=== PATIENT | female | born 1940 | race Caucasian/White ===

== ENCOUNTER 2021-11-29 08:33 | Day surgery (SDC) | payer MEDICARE ==
[2021-11-28 10:16] VITALS: BMI 34.0
[~2021-11-29 08:33] MED LIST: LACTATED RINGERS 1,000 ML IV SCH; LIDOCAINE 1% (10MG/ML) FOR IV START INTRADERMA PRN
[2021-11-29 09:05] VITALS: TEMP 96.9
[2021-11-29 09:20] LABS: Glucose,Whole Blood 124 mg/dL (70-110)
[2021-11-29] MEDS ORDERED: PROPOFOL 10 MG/ML 20 ML VIAL IV ONE (09:38)
[2021-11-29] MEDS ORDERED: LIDOCAINE 2% INJ 20 MG/ML (2 ML VIAL) ONE (09:38)
--- NOTE | 2021-11-29 10:07 | P.PCN ---
Date of Procedure: 11/29/21 Procedure(s) Performed: BRIEF HISTORY: Patient is a 81-year-old pleasant white female scheduled for an elective colonoscopy as a part of evaluation of iron deficiency anemia. PROCEDURE PERFORMED: Colonoscopy with snare polypectomy. PREOPERATIVE DIAGNOSIS: Iron deficiency anemia. IV sedation per Anesthesia. PROCEDURE: After informed consent was obtained, the patient, was brought into the endoscopy unit. IV sedation was administered by Anesthesia under continuous monitoring. Digital rectal examination was normal. Initially the Olympus CF-160 flexible video colonoscope was then inserted in the rectum, gradually advanced into the cecum without any difficulty. Careful examination was performed as the scope was gradually being withdrawn. Ileocecal valve and the appendiceal orifice were visualized and appeared normal. Prep was excellent. Mucosa of the cecum, ascending colon, transverse colon, appeared normal. The descending colon there was a 5 limited sessile polyp removed by snare polypectomy. descending colon, sigmoid colon, and rectum appeared normal. Retroflexion was performed in the rectum and no lesions were seen. The patient tolerated the procedure well. IMPRESSION: 5 mm ascending colon polyp status post polypectomy Rest of the colon appeared normal RECOMMENDATIONS: Findings of this examination were discussed with the patientas well as a family. She was advised to follow with the biopsy results. Continue with iron supplements and monitor hemoglobin periodically.
[2021-11-29 10:39] VITALS: BP 129/77; PULSE 67; RESP 18
== END 2021-11-29 11:04 | disposition home or self-care (01) ==
LOC: ORWHC2ENDO 08:33
PROVIDERS: ATTEND Internal Medicine Gastroenterology
DX: D12.4 Benign neoplasm of descending colon (principal); D50.9 Iron deficiency anemia, unspecified; I25.10 Atherosclerotic heart disease of native coronary artery without angina pectoris; I10 Essential (primary) hypertension; E78.5 Hyperlipidemia, unspecified; Z95.5 Presence of coronary angioplasty implant and graft; Z95.1 Presence of aortocoronary bypass graft; Z98.890 Other specified postprocedural states; Z79.899 Other long term (current) drug therapy; Z79.82 Long term (current) use of aspirin; Z88.5 Allergy status to narcotic agent; Z88.0 Allergy status to penicillin; Z88.8 Allergy status to other drugs, medicaments and biological substances; Z91.041 Radiographic dye allergy status
CPT/HCPCS: 88305; 45385; J2704; J2001

== ENCOUNTER 2022-10-20 08:44 | Inpatient (IN) | payer MEDICARE ==
[2022-10-19 09:56] VITALS: BMI 34.3
[2022-10-20 09:30] LABS: Glucose,Whole Blood 120 mg/dL (70-110)
[2022-10-20] MEDS ORDERED: LACTATED RINGERS 1,000 ML IV ONE (09:30)
--- NOTE | 2022-10-20 11:24 | P.PCN ---
Date of Procedure: 10/20/22 Procedure(s) Performed: BRIEF HISTORY: Patient is a 81-year-old, pleasant, white white female scheduled for an upper endoscopy as a part of evaluation of I deficiency anemia. She had a colonoscopy in November of last year and was noted to have small adenoma.. PROCEDURE PERFORMED: Esophagogastroduodenoscopy with biopsy, snare polypectomy and Endo Clip placement. PREOPERATIVE DIAGNOSIS: Iron Deficiency anemia. IV sedation per anesthesia. PROCEDURE: After informed consent was obtained, the patient was brought into the endoscopy unit. IV sedation was administered by Anesthesia under continuous monitoring. Initially the Olympus GIF-140 video endoscope was inserted into the mouth. Esophagus intubated without any difficulty. It was gradually advanced into the stomach and duodenum and carefully examined. The bulb and the second part of the duodenum appeared normal. Biopsies were done from the duodenum to rule out celiac disease. The scope at this time was withdrawn to the stomach, adequately insufflated with air, and upon careful examination, mucosa of the antrum, appeared normal. In the proximal body the stomach along the lesser curvature there was a 3 cm thick pedunculated polyp with some oozing identified. Since this appears to be the source of iron deficiency anemia I proceeded with snare polypectomy. As snare polypectomy was being performed at the base of the polyp some technical difficulties were encountered and the cautery machine was not working. In the meantime the screening on him on the monitor went blank and cautery was completed and immediately there was significant oozing identified. The cautery machine was changed an episode with snare polypectomy and the stump of the polyp. Despite performing snare it appeared to the cautery machine was not working and patient continued to have active oozing. Total of 6 endoclips were placed and good hemostasis was achieved. Using a Hendricks net the gastric polyp was retrieved. Mucosa of the cardia and the fundus appeared normal. The scope was then withdrawn into the esophagus. The GE junction was located at 39 cm from the incisors. The esophagus appeared normal. There were no erosions or ulcerations seen and the patient tolerated the procedure well. IMPRESSION: 3 cm thick pedunculated polyp in the proximal body of the stomach along the lesser curvature with some oozing status post snare polypectomy .was complicated by active bleeding from the polypectomy site status post Endo Clip placement with good hemostasis RECOMMENDATIONS: The findings of this examination were discussed with the patient as well as a family. Patient will be admitted to the hospital for close observation. Surgical consultation will be obtained with Dr. Ochoa. We'll obtain CBC and watch at every 6 hours.
[2022-10-20] MEDS ORDERED: LACTATED RINGERS 1,000 ML IV SCH (11:47)
[2022-10-20 12:51] LABS: Glucose,Whole Blood 98 mg/dL (70-110)
[2022-10-20] MEDS ORDERED: MELATONIN 3 MG TABLET PO PRN (13:11)
[2022-10-20] MEDS ORDERED: ACETAMINOPHEN TAB 325 MG TAB PO PRN (13:11)
[2022-10-20] MEDS ORDERED: NALOXONE 0.4 MG/ML 1 ML VIAL IV PRN (13:11)
[2022-10-20] MEDS ORDERED: DEXTROSE 50% SYRINGE 50 ML IVP PRN ×2 (13:18)
--- NOTE | 2022-10-20 13:27 | P.HPIM ---
History of Present Illness H&P Date: 10/20/22 History of Presenting Illness: Patient is a very pleasant 81-year-old female with a past medical history of CAD status post CABG 5 followed by stenting, hypertension, hyperlipidemia, eyk-qpvjweu-awevuwdbj diabetes mellitus, and iron deficiency anemia. She underwent an EGD with biopsy and snare polypectomy earlier today with clip placement. Snare polypectomy was complicated by active bleeding and after hemostasis achieved, self propelled dredge operator recommending inpatient admission for close monitoring of hemoglobin and/or recurrence of bleeding. During po stoperative period patient went into new onset atrial fibrillation with a controlled ventricular rate. Discussed patient's history, surgical procedure, and recommendations by surgeon with gastroenterology PRODUCTION FLOATER and self propelled dredge operator. Patient is being admitted under our services with consultation to general surgery (Dr. Ochoa) and cardiology (Dr. Durbin). Upon evaluation at the bedside in postoperative area, patient alert and oriented to person, place, time, and situation. She currently denies having any complaints at this time. Patient noted to be in atrial fibrillation with a controlled ventricular rate ranging from 60s to 90s on monitor throughout assessment. She denies feeling any palpitations, dizziness, lightheadedness, chest pain, shortness of breath, nausea, vomiting, abdominal pain or discomfort, or any other complaints at this time. Patient does report she has noticed some swelling in her bilateral hands, ankles and feet over the past few weeks. Patient reports that she was following with a line director in [place] where she underwent her quintuple bypass in 2001. Patient reports since this time she also had stents placed in 2012 and again in 2013 but otherwise denies having any history of known atrial fibrillation or other cardiac arrhythmias. Patient states she does not have a line director since moving to [place] and her line director was in [place]. Review of systems: Pertinent positives and negatives as discussed in HPI, a complete review of systems was performed and all other systems are negative. Physical exam: Vital signs reviewed and stable. General: Nontoxic, no distress and appears stated age. Derm: Skin warm and dry, normal coloration for ethnicity. Head: Atraumatic, normocephalic and symmetric. Eyes: EOMs intact, no lid lag, and anicteric sclera Mouth: no lip lesions, mucus membranes moist Cardiovascular: Irregularly irregular, systolic murmur, positive posterior tibial pulses bilaterally, and cap refill < 2 seconds. Lungs: Respirations even, regular, and unlabored on room air. Lungs CTA bilaterally, no rhonchi, no rales, no wheezing, and no accessory muscle usage. Abdominal: soft, nontender to palpation, no guarding, no appreciable organomegaly Ext: ROM intact. No gross muscle atrophy, scant lower extremity edema, no contractures Neuro: Speech clear, face symmetrical and CN II-XII grossly intact with no noted focal neuro deficits Psych: Alert and oriented to person, place, time, and situation. Appropriate and pleasant affect. Assessment and Plan of Care: New-onset A. fib with a controlled ventricular rate Status post Snare polypectomy complicated by active bleeding History of CAD status post CABG 5 followed by stent placement Hypertension Hyperlipidemia Iron deficiency anemia Fpy-Fjbjvdr-tbvvwgele diabetes mellitus -Order placed for stat EKG -Hold off on anticoagulation at this time as patient being monitored for concerns of possible bleeding, this was discussed with line director. -Cardiology consulted and discussed plan of care with Dr. Durbin. -Obtain stat CBC followed by CBC every 6 hours to monitor for any signs/symptoms of blood loss. -Order placed for echocardiogram -Patient to be admitted to cardiac stepdown unit with telemetry under our services for continued close monitoring. -Order placed for Protonix 40 mg IVP twice daily -Patient to be maintained on clear liquid diet pending lab results and diet to be advanced as recommended by general surgery. -MIA rzao and Bianca for DVT prophylaxis -Hold glyburide and place patient on glycemic protocol with NovoLog sliding scale. The patient is admitted with an anticipated greater than 2 midnight stay for evaluation of new onset atrial fibrillation and status post snare polypectomy complicated by active bleeding CODE STATUS: Full code DVT prophylaxis: MAI razo and Bianca Discussed with: Patient, RN, self propelled dredge operator, and line director Anticipated discharge date: Clinical course to determine Anticipated discharge place: Home Patient was seen independently by Nurse Practitioner. This document was prepared using [employer] dictation software. Please allow for errors in television engineering teacher while rare they do occur. Ben Mckenna NP rendered care for this patient independently, reviewed the findings and plan as documented in the note above. I did not physically speak with or examine the patient on this date. Past Medical History Past Medical History: Diabetes Mellitus, Hyperlipidemia, Hypertension, Myocardial Infarction ([place]) Additional Past Medical History / Comment(s): gout, low iron/anemia-iron transfusions, hx falls, fx ribs, back pain, constipation when taking iron. Last Myocardial Infarction Date:: 2001 History of Any Multi-Drug Resistant Organisms: None Reported Past Surgical History: Cholecystectomy, Coronary Bypass/CABG, Heart Catheterization With Stent, Hernia Repair, Orthopedic Surgery Additional Past Surgical History / Comment(s): 5 way bypass CABG 2001, umbilical hernia, renee cataracts, ORIF rt ankle, egd, colonoscopy. Past Anesthesia/Blood Transfusion Reactions: Previous Problems w/ Anesthesia, Motion Sickness, Postoperative Nausea & Vomiting (PONV) Date of Last Stent Placement:: 1998 Past Psychological History: No Psychological Hx Reported Smoking Status: Former smoker Past Alcohol Use History: None Reported Additional Past Alcohol Use History / Comment(s): quit smoking 2001, started smoking age 18's Past Drug Use History: None Reported - Past Family History Mother Family Medical History: No Reported History Son(s) Family Medical History: Cancer Additional Family Medical History / Comment(s): pancreatic cancer Father Family Medical History: Congestive Heart Failure (CHF), Coronary Artery Disease (CAD) Medications and Allergies Home Medications Medication Instructions Recorded Confirmed Type Aspirin [Adult Low Dose Aspirin EC] 81 mg PO HS 11/28/21 10/20/22 History Benazepril/Hydrochlorothiazide 1 each PO QAM 11/28/21 10/20/22 History [Benazepril-Hctz 20-25 mg Tab] Metoprolol Succinate (ER) [Toprol 100 mg PO DAILY 11/28/21 10/20/22 History Xl] allopurinoL [Zyloprim] 100 mg PO DAILY 11/28/21 10/20/22 History amLODIPine [Norvasc] 5 mg PO DAILY 11/28/21 10/20/22 History Cholecalciferol [Vitamin D3 (125 125 mcg PO DAILY 10/19/22 10/20/22 History Mcg = 5000 Iu)] Glimepiride [Amaryl] 2 mg PO AC-BRKFST 10/19/22 10/20/22 History Allergies Allergy/AdvReac Type Severity Reaction Status Date / Time codeine Allergy Severe Swelling, Verified 10/20/22 09:12 "face got distorted", diff breathing saccharin Allergy Unknown Nausea & Verified 10/20/22 09:12 Vomiting Iodine and Iodide Containing Allergy Rash/Hives Verified 10/20/22 09:12 Produc Penicillins Allergy Unknown Verified 10/20/22 09:12 perfume Allergy Rash/Hives Verified 10/20/22 09:12 red dye Allergy Rash/Hives- Verified 10/20/22 09:12 RED DYE # 10 rubber, unspecified Allergy Rapid Verified 10/20/22 09:12 Heart Rate shellfish derived [Shellfish] Allergy Rash/Hives Verified 10/20/22 09:12 shrimp Allergy Rash/Hives Verified 10/20/22 09:12 Lllwowo-VQC-SfX Reductase Allergy Rash/Hives, Verified 10/20/22 09:12 Inhibitor "can not walk" Bandaids AdvReac Unknown Rash/Hives Uncoded 10/20/22 09:12 LEATHER AdvReac Unknown Rash/Hives Uncoded 10/20/22 09:12 artificial sugar AdvReac Nausea & Uncoded 10/20/22 09:12 Vomiting Physical Exam Vitals: Vital Signs Temp Pulse Resp BP Pulse Ox 10/20/22 13:21 71 20 162/83 96 10/20/22 12:25 77 20 161/88 97 10/20/22 12:10 80 16 153/74 98 10/20/22 11:54 78 20 149/103 96 10/20/22 11:39 71 16 142/56 96 10/20/22 11:24 67 16 113/64 3 L 10/20/22 09:30 98.4 F 101 H 17 145/85 92 L Intake and Output 10/19/22 10/20/22 10/20/22 22:59 06:59 14:59 Intake Total 900 Balance 900 Intake: IV 900 Other: Weight 81.4 kg Results CBC & Chem 7: 10/21/22 10:02 10/21/22 09:52 Labs: Abnormal Lab Results - Last 24 Hours (Table) 10/20/22 Range/Units 09:28 POC Glucose (mg/dL) 120 H (70-110) mg/dL
[2022-10-20] MEDS: SODIUM CHLORIDE 0.9% 1,000 ML IV SCH (13:58)
[2022-10-20 15:40] LABS: HGB 14.3 gm/dL (11.4-16.0); Hypochromasia Slight; MCH 29.2 pg (25.0-35.0); MCHC 31.8 g/dL (31.0-37.0); MCV 91.8 fL (80.0-100.0); Mean Platelet Volume 8.1; Platelet Count 178 k/uL (150-450); RDW 13.3 % (11.5-15.5); WBC 7.1 k/uL (3.8-10.6)
[2022-10-20 16:00] LABS: African American GFR (CKD) 77 (>60 ml/min/1.73 sqM); Anion Gap 8 mmol/L; Blood Urea Nitrogen 31 mg/dL (7-17); Calcium 10.6 mg/dL (8.4-10.2); Carbon Dioxide 27 mmol/L (22-30); Chloride 103 mmol/L (98-107); Glucose 111 mg/dL (74-99); Non-African American GFR(CKD) 66 (>60 ml/min/1.73 sqM); Potassium 4.2 mmol/L (3.5-5.1); Sodium 138 mmol/L (137-145)
[2022-10-20 16:25] LABS: Glucose,Whole Blood 105 mg/dL (70-110)
[2022-10-20] MEDS: INSULIN ASPART (NovoLOG) 100 UNIT/ML VIAL SQ SCH ×2 (16:32→20:08)
--- NOTE | 2022-10-20 18:51 | P.GSCN ---
History of Present Illness Consult date: 10/20/22 Reason for Consult: Upper GI bleed History of present illness: 81-year-old female admitted after upper endoscopy revealed a moderate sized tano bobo polyp in the proximal stomach along the lesser curvature. This had a thick stalk but was removed using snare with cautery technique. The base of the polyp bled following polypectomy requiring multiple clips to be placed. Following that the patient had no further bleeding seen. She is here for observation. We are consulted in the event that bleeding resumes. I was present during the latter part of the procedure with Dr. Tony. No abdominal pain. Hemoglobin at this time is normal. No tachycardia or hypotension. Patient is on clear liquids. Review of Systems The patient denies any acute changes in vision or hearing, no dysphagia or odynophagia, no chest pain or shortness of breath, no dysuria or hematuria, no headache, no runny nose, no rectal bleeding or melena, no unexplained weight loss Past Medical History Past Medical History: Diabetes Mellitus, Hyperlipidemia, Hypertension, [place] Infarction ([place]) Additional Past Medical History / Comment(s): gout, low iron/anemia-iron tra nsfusions, hx falls, fx ribs, back pain, constipation when taking iron. Last Myocardial Infarction Date:: 2001 History of Any Multi-Drug Resistant Organisms: None Reported Past Surgical History: Cholecystectomy, Coronary Bypass/CABG, Heart Catheterization With Stent, Hernia Repair, Orthopedic Surgery Additional Past Surgical History / Comment(s): 5 way bypass CABG 2001, umbilical hernia, renee cataracts, ORIF rt ankle, egd, colonoscopy. Past Anesthesia/Blood Transfusion Reactions: Previous Problems w/ Anesthesia, Motion Sickness, Postoperative Nausea & Vomiting (PONV) Date of Last Stent Placement:: 1998 Past Psychological History: No Psychological Hx Reported Smoking Status: Former smoker Past Alcohol Use History: None Reported Additional Past Alcohol Use History / Comment(s): quit smoking 2001, started smoking age 18's Past Drug Use History: None Reported - Past Family History Mother Family Medical History: No Reported History Son(s) Family Medical History: Cancer Additional Family Medical History / Comment(s): pancreatic cancer Father Family Medical History: Congestive Heart Failure (CHF), Coronary Artery Disease (CAD) Medications and Allergies Home Medications Medication Instructions Recorded Confirmed Type Aspirin [Adult Low Dose Aspirin EC] 81 mg PO HS 11/28/21 10/20/22 History Benazepril/Hydrochlorothiazide 1 each PO QAM 11/28/21 10/20/22 History [Benazepril-Hctz 20-25 mg Tab] Metoprolol Succinate (ER) [Toprol 100 mg PO DAILY 11/28/21 10/20/22 History Xl] allopurinoL [Zyloprim] 100 mg PO DAILY 11/28/21 10/20/22 History amLODIPine [Norvasc] 5 mg PO DAILY 11/28/21 10/20/22 History Cholecalciferol [Vitamin D3 (125 125 mcg PO DAILY 10/19/22 10/20/22 History Mcg = 5000 Iu)] Glimepiride [Amaryl] 2 mg PO AC-BRKFST 10/19/22 10/20/22 History Allergies Allergy/AdvReac Type Severity Reaction Status Date / Time codeine Allergy Severe Swelling, Verified 10/20/22 09:12 "face got distorted", diff breathing saccharin Allergy Unknown Nausea & Verified 10/20/22 09:12 Vomiting Iodine and Iodide Containing Allergy Rash/Hives Verified 10/20/22 09:12 Produc Penicillins Allergy Unknown Verified 10/20/22 09:12 perfume Allergy Rash/Hives Verified 10/20/22 09:12 red dye Allergy Rash/Hives- Verified 10/20/22 09:12 RED DYE # 10 rubber, unspecified Allergy Rapid Verified 10/20/22 09:12 Heart Rate shellfish derived [Shellfish] Allergy Rash/Hives Verified 10/20/22 09:12 shrimp Allergy Rash/Hives Verified 10/20/22 09:12 Plhbxje-EFP-SdD Reductase Allergy Rash/Hives, Verified 10/20/22 09:12 Inhibitor "can not walk" Bandaids AdvReac Unknown Rash/Hives Uncoded 10/20/22 09:12 LEATHER AdvReac Unknown Rash/Hives Uncoded 10/20/22 09:12 artificial sugar AdvReac Nausea & Uncoded 10/20/22 09:12 Vomiting Surgical - Exam Vital Signs Temp Pulse Resp BP Pulse Ox 98.4 F 101 H 17 145/85 92 L 10/20/22 09:30 10/20/22 09:30 10/20/22 09:30 10/20/22 09:30 10/20/22 09:30 Physical exam: General: Well-developed, well-nourished HEENT: Normocephalic, sclerae nonicteric Abdomen: Nontender, nondistended Extremities: No edema Neuro: Alert and oriented Results - Labs 10/20/22 14:57 10/20/22 14:57 Abnormal Lab Results - Last 24 Hours (Table) 10/20/22 10/20/22 Range/Units 09:28 14:57 BUN 31 H (7-17) mg/dL Glucose 111 H (74-99) mg/dL POC Glucose (mg/dL) 120 H (70-110) mg/dL Calcium 10.6 H (8.4-10.2) mg/dL Diabetes panel 10/20/22 Range/Units 14:57 Sodium 138 (137-145) mmol/L Potassium 4.2 (3.5-5.1) mmol/L Chloride 103 (98-107) mmol/L Carbon Dioxide 27 (22-30) mmol/L BUN 31 H (7-17) mg/dL Creatinine 0.82 (0.52-1.04) mg/dL Glucose 111 H (74-99) mg/dL Calcium 10.6 H (8.4-10.2) mg/dL Calcium panel 10/20/22 Range/Units 14:57 Calcium 10.6 H (8.4-10.2) mg/dL Pituitary panel 10/20/22 Range/Units 14:57 Sodium 138 (137-145) mmol/L Potassium 4.2 (3.5-5.1) mmol/L Chloride 103 (98-107) mmol/L Carbon Dioxide 27 (22-30) mmol/L BUN 31 H (7-17) mg/dL Creatinine 0.82 (0.52-1.04) mg/dL Glucose 111 H (74-99) mg/dL Calcium 10.6 H (8.4-10.2) mg/dL Adrenal panel 10/20/22 Range/Units 14:57 Sodium 138 (137-145) mmol/L Potassium 4.2 (3.5-5.1) mmol/L Chloride 103 (98-107) mmol/L Carbon Dioxide 27 (22-30) mmol/L BUN 31 H (7-17) mg/dL Creatinine 0.82 (0.52-1.04) mg/dL Glucose 111 H (74-99) mg/dL Calcium 10.6 H (8.4-10.2) mg/dL Assessment and Plan (1) Upper GI bleed Narrative/Plan: 81-year-old female with upper GI bleed after removal of gastric polyp. Continue to monitor hemoglobin closely. Continue to hold anticoagulation. Continue liquid diet. Will follow. Current Visit: Yes Status: Acute Code(s): K92.2 - GASTROINTESTINAL HEMORRHAGE, UNSPECIFIED SNOMED Code(s): 99478700 (2) Gastric polyp Current Visit: Yes Status: Acute Code(s): K31.7 - POLYP OF STOMACH AND DUODENUM SNOMED Code(s): 52308689
[2022-10-20] MEDS: PANTOPRAZOLE 40 MG/10 ML VIAL IVP SCH (19:43)
[2022-10-20 20:04] LABS: HCT 44.9 % (34.0-46.0); HGB 14.2 gm/dL (11.4-16.0); Hypochromasia Slight; MCH 29.5 pg (25.0-35.0); MCHC 31.7 g/dL (31.0-37.0); Mean Platelet Volume 7.9; Platelet Count 179 k/uL (150-450); RBC 4.83 m/uL (3.80-5.40); RDW 13.3 % (11.5-15.5); WBC 7.6 k/uL (3.8-10.6)
[2022-10-20 20:06] LABS: Glucose,Whole Blood 104 mg/dL (70-110)
--- NOTE | 2022-10-20 22:12 | CONS ---
CONSULTATION HISTORY OF PRESENT ILLNESS: The patient is an 81-year-old pleasant white female with history of iron deficiency anemia, history of coronary artery disease, hypertension, hyperlipidemia, had an outpatient upper endoscopy as a part of evaluation of iron deficiency anemia. She had a colonoscopy in November of 2021, which revealed a small adenoma. She was scheduled for an outpatient EGD today. The upper endoscopy revealed a 3 cm polyp in the gastric body of the stomach which was removed using a snare polypectomy and immediately following the polypectomy, there was active bleeding at the polypectomy site. Subsequently, several Endoclips were placed and hemostasis was achieved and because of concern for further bleeding, she is going to be admitted to the hospital for close observation. The patient denies any abdominal pain. No nausea, no vomiting. PAST MEDICAL HISTORY: Significant for hypertension, hyperlipidemia, coronary artery disease status post CABG and diabetes mellitus. MEDICATIONS: Medications at home include, 1. Aspirin. 2. Benazepril. 3. Zyloprim. 4. Norvasc. 5. Amaryl. 6. Vitamin D3. 7. Metoprolol. ALLERGIES: None. SOCIAL HISTORY: No smoking. No alcohol use. PAST SURGICAL HISTORY: CABG, cholecystectomy, hernia repair, hip surgery. FAMILY HISTORY: Unremarkable. REVIEW OF SYSTEMS: CARDIOPULMONARY: No chest pain or shortness of breath. GENITOURINARY: No dysuria or hematuria. MUSCULOSKELETAL: Unremarkable. SKIN: Unremarkable. ENDOCRINE: Unremarkable. PSYCHIATRIC: Unremarkable. NEUROLOGIC: Unremarkable. ENT/VISION: Unremarkable. CONSTITUTIONAL: No recent weight loss. No fever, chills, or night sweats. PHYSICAL EXAMINATION: VITAL SIGNS: Stable. Blood pressure is 117/60, pulse rate 70, temperature 98. HEENT: Unremarkable. Conjunctivae pink. Sclerae anicteric. Oral cavity, no lesions. NECK: No JVD or lymph node enlargement. CHEST: Clear to auscultation. HEART: Regular rate and rhythm. ABDOMEN: Soft. Bowel sounds are positive. No organomegaly. EXTREMITIES: No pedal edema. SKIN: No rashes. NEUROLOGIC: She is alert and oriented x3. No focal deficits. LABORATORY DATA: Labs at the time of admission to the hospital, hemoglobin is 14.3, BUN 31, creatinine 0.83. IMPRESSION: 1. Acute upper gastrointestinal bleed following endoscopy with polypectomy of the large gastric polyp noted in the proximal body of the stomach, status post esophagogastroduodenoscopy with Endoclip placement with good hemostasis. 2. History of coronary artery disease, hypertension and hyperlipidemia. 3. History of diabetes mellitus. RECOMMENDATIONS: 1. Start Protonix 40 mg twice daily. 2. Clear liquid diet. 3. Surgical consultation. 4. No GI Service available for the weekend. Thank you for this consultation. MMODL / IJN: [id number] /
[2022-10-21 02:23] LABS: HCT 42.2 % (34.0-46.0); HGB 13.2 gm/dL (11.4-16.0); Hypochromasia Slight; MCHC 31.2 g/dL (31.0-37.0); Mean Platelet Volume 7.9; Platelet Count 165 k/uL (150-450); RBC 4.54 m/uL (3.80-5.40); RDW 13.5 % (11.5-15.5); WBC 7.2 k/uL (3.8-10.6)
[2022-10-21 06:12] LABS: Glucose,Whole Blood 96 mg/dL (70-110)
[2022-10-21] MEDS: INSULIN ASPART (NovoLOG) 100 UNIT/ML VIAL SQ SCH ×4 (06:15→21:27)
[2022-10-21] MEDS: lisinopriL 20 MG TAB PO SCH (09:05)
[2022-10-21] MEDS: amLODIPine 5 MG TAB PO SCH (09:05)
[2022-10-21] MEDS: allopurinoL 100 MG TAB PO SCH (09:05)
[2022-10-21] MEDS: hydroCHLOROthiazide 25 MG TAB PO SCH (09:05)
[2022-10-21] MEDS: METOPROLOL SUCCINATE (ER) 100 MG TAB.ER.24H PO SCH (09:06)
[2022-10-21] MEDS: PANTOPRAZOLE 40 MG/10 ML VIAL IVP SCH ×2 (09:06→21:30)
--- NOTE | 2022-10-21 10:00 | P.PN ---
Subjective Progress Note Date: 10/21/22 Principal diagnosis: Upper GI bleed Patient doing well today. No rectal bleeding or melena overnight. No hematemesis. Some mild nausea this morning. Otherwise she is hungry. She would like to go home today. No pain. Objective - Vital Signs Vital signs: Vital Signs Temp 98 F 10/21/22 08:00 Pulse 77 10/21/22 08:00 Resp 18 10/21/22 08:00 BP 162/86 10/21/22 08:00 Pulse Ox 93 L 10/21/22 08:00 FiO2 Intake & Output 10/20/22 10/21/22 10/21/22 18:59 06:59 18:59 Intake Total 1150 Balance 1150 Weight 81.4 kg Intake: IV 925 Oral 225 Other: Voiding Method Toilet Toilet Toilet - Exam Abdomen: Soft, nontender, nondistended - Labs CBC & Chem 7: 10/21/22 01:50 10/20/22 14:57 Labs: Abnormal Lab Results - Last 24 Hours (Table) 10/20/22 Range/Units 14:57 BUN 31 H (7-17) mg/dL Glucose 111 H (74-99) mg/dL Calcium 10.6 H (8.4-10.2) mg/dL Assessment and Plan (1) Upper GI bleed Narrative/Plan: Patient doing well at this time. Advance to pured diet. Await morning hemoglobin. If stable May discharge from our point of view. Recommend pured diet for the next 1 week. Follow-up to the hospital with any bloody stools or melanotic stools. Current Visit: Yes Status: Acute Code(s): K92.2 - GASTROINTESTINAL HEMORRHAGE, UNSPECIFIED SNOMED Code(s): 71425038 (2) Gastric polyp Current Visit: Yes Status: Acute Code(s): K31.7 - POLYP OF STOMACH AND DUODE NUM SNOMED Code(s): 20302919
[2022-10-21 10:24] LABS: ALT 20 U/L (4-34); AST 34 U/L (14-36); African American GFR (CKD) 74 (>60 ml/min/1.73 sqM); Alkaline Phosphatase 96 U/L (38-126); Anion Gap 10 mmol/L; Blood Urea Nitrogen 22 mg/dL (7-17); Calcium 10.4 mg/dL (8.4-10.2); Carbon Dioxide 26 mmol/L (22-30); Chloride 103 mmol/L (98-107); Glucose 173 mg/dL (74-99); Magnesium 1.5 mg/dL (1.6-2.3); Non-African American GFR(CKD) 64 (>60 ml/min/1.73 sqM); Potassium 3.9 mmol/L (3.5-5.1); Sodium 139 mmol/L (137-145); Total Bilirubin 1.4 mg/dL (0.2-1.3); Total Protein 7.7 g/dL (6.3-8.2)
[2022-10-21] MEDS ORDERED: Magnesium Replacement Protocol 1 EACH MISC MISCELLANE PRN (10:26)
[2022-10-21 10:45] LABS: HCT 46.6 % (34.0-46.0); HGB 14.4 gm/dL (11.4-16.0); Hypochromasia Slight; MCH 28.9 pg (25.0-35.0); MCV 93.2 fL (80.0-100.0); Mean Platelet Volume 8.1; Platelet Count 179 k/uL (150-450); RDW 13.3 % (11.5-15.5); WBC 7.2 k/uL (3.8-10.6)
[2022-10-21] MEDS: SODIUM CHLORIDE 0.9% 1,000 ML IV SCH (11:02)
[2022-10-21] MEDS: MAGNESIUM SULFATE-D5W PMX 1 GM in DEXTROSE/WATER 1 100ML.BAG IVPB SCH ×2 (11:02→12:36)
[2022-10-21 11:30] LABS: Glucose,Whole Blood 130 mg/dL (70-110)
--- NOTE | 2022-10-21 14:36 | P.PN ---
Subjective Progress Note Date: 10/21/22 History of Presenting Illness: Patient is a very pleasant 81-year-old female with a past medical history of CAD status post CABG 5 followed by stenting, hypertension, hyperlipidemia, rsn-cfelwpy-rjapnqhyn diabetes mellitus, and iron deficiency anemia. She under went an EGD with biopsy and snare polypectomy earlier today with clip placement. Snare polypectomy was complicated by active bleeding and after hemostasis achieved, passenger solicitor recommending inpatient admission for close monitoring of hemoglobin and/or recurrence of bleeding. During postoperative period patient went into new onset atrial fibrillation with a controlled ventricular rate. Discussed patient's history, surgical procedure, and recommendations by surgeon with gastroenterology INSTRUCTIONAL SUPPORT TECHNICIAN and passenger solicitor. Patient is being admitted under our services with consultation to general surgery (Dr. Ochoa) and cardiology (Dr. Durbin). EKG reviewed showing atrial fibrillation with a controlled ventricular rate at 75 bpm with inferiolateral T- wave inversion upon personal review and interpretation. Hemoglobin has been trended every 6 hours and has remained stable resulting at 14.3, 14.2, 13.2, and 14.4. CBC remains unremarkable and BMP showing elevated BUN of 22, glucose of 173, magnesium of 1.5, and elevated bili of 1.4. Physical exam: Patient seen and fully evaluated at bedside this morning. She was sitting up in the chair and denies having any complaints or pain at this time. Patient remains in atrial fibrillation currently with a controlled ventricular rate. Hemoglobin has been trended every 6 hours and remains stable at 14.4. Patient reports having a bowel movement this morning and denies noting any melena or hematochezia. Diet was advanced to pured diet per general surgery recommendations and patient appears to be tolerating well. Vital signs reviewed and stable. General: Nontoxic, no distress and appears stated age. Derm: Skin warm and dry, normal coloration for ethnicity. Head: Atraumatic, normocephalic and symmetric. Eyes: EOMs intact, no lid lag, and anicteric sclera Mouth: no lip lesions, mucus membranes moist Cardiovascular: Irregularly irregular, systolic murmur, positive posterior tibial pulses bilaterally, and cap refill < 2 seconds. Lungs: Respirations even, regular, and unlabored on room air. Lungs CTA bilaterally, no rhonchi, no rales, no wheezing, and no accessory muscle usage. Abdominal: soft, nontender to palpation, no guarding, no appreciable organomegaly Ext: ROM intact. No gross muscle atrophy, scant lower extremity edema, no contractures Neuro: Speech clear, face symmetrical and CN II-XII grossly intact with no noted focal neuro deficits Psych: Alert and oriented to person, place, time, and situation. Appropriate and pleasant affect. Assessment and Plan of Care: New-onset A. fib with a controlled ventricular rate Status post Snare polypectomy complicated by active bleeding Prerenal azotemia Elevated total bili of 1.4 Hypomagnesemia History of CAD status post CABG 5 followed by stent placement Hypertension Hyperlipidemia Iron deficiency anemia Iba-Haxtiin-zlrlhhnqx diabetes mellitus -EKG reviewed showing atrial fibrillation with a controlled ventricular rate at 75 bpm with inferiolateral T-wave inversion upon personal review and interpretation. -Gen. surgery and discussed plan of care with Dr. Ochoa. He is recommending patient cleared from his perspective for discharge on pured diet and recommending continuing to hold off on anticoagulation secondary to high risk of bleeds at this time. -Cardiology consulted and appreciate recommendations -CBC trended every 6 hours throughout the night, hemoglobin remained stable at 14.4. -Echocardiogram has been completed awaiting results. -Continue telemetry monitoring. -Continue Protonix 40 mg IVP twice daily -Magnesium 1.5. Orders place her magnesium sulfate 2 g IVPB with repeat magnesium levels tomorrow morning. -Diet was advanced to Pured diet by general surgeon this morning and patient tolerating well. -Continue MIA hose and SCDs for DVT prophylaxis -Hold glyburide and continue glycemic protocol with NovoLog sliding scale. Data review: Vital signs reviewed and stable. Blood pressure 162/86, heart rate 77, respiratory rate 18, temperature 98.0F, SpO2 of 93% on room air. Hemoglobin has been trended every 6 hours and has remained stable resulting at 14.3, 14.2, 13.2, and 14.4. CBC remains unremarkable and BMP showing elevated BUN of 22, glucose of 173, magnesium of 1.5, and elevated bili of 1.4. CODE STATUS: Full code DVT prophylaxis: MIA hose and SCDs Discussed with: Patient, RN, and general surgeon Anticipated discharge date: Clinical course to determine Anticipated discharge place: Home Patient was seen independently by Nurse Practitioner. This document was prepared using [employer] dictation software. Please allow for errors in taproom attendant while rare they do occur. Ben Bala, INSTRUCTIONAL SUPPORT TECHNICIAN rendered care for this patient independently, reviewed the findings and plan as documented in the note above. I did not physically speak with or examine the patient on this date. Objective - Vital Signs Vital signs: Vital Signs Temp 98.5 F 10/21/22 03:16 Pulse 71 10/21/22 03:16 Resp 18 10/21/22 03:16 BP 135/77 10/21/22 03:16 Pulse Ox 93 L 10/21/22 03:16 FiO2 Intake & Output 10/20/22 10/21/22 10/21/22 18:59 06:59 18:59 Intake Total 1150 Balance 1150 Weight 81.4 kg Intake: IV 925 Oral 225 Other: Voiding Method Toilet Toilet - Labs CBC & Chem 7: 10/21/22 10:02 10/21/22 09:52 Labs: Abnormal Lab Results - Last 24 Hours (Table) 10/20/22 Range/Units 14:57 BUN 31 H (7-17) mg/dL Glucose 111 H (74-99) mg/dL Calcium 10.6 H (8.4-10.2) mg/dL
--- NOTE | 2022-10-21 14:59 | P.CRDCN ---
History of Present Illness Consult date: 10/21/22 History of present illness: HISTORY OF PRESENTING ILLNESS 81-year-old with prior history of coronary artery disease status post CABG in 2001, previous PCI before 2001, hypertension, hyperlipidemia, type 2 diabetes, had issues with anemia and lower GI bleeding. She had a EGD with biopsy and snare polypectomy done and clip placement. Postoperatively she was noticed to have atrial fibrillation with controlled ventricular rate. Patient reports that she has never had prior history of atrial fibrillation. She is not on any blood thinners at this time. She denies any symptoms of palpitations lightheadedness or dizziness after her endoscopy procedure. She denies any chest pain chest pressure. She denies any disruption of excess tolerance lately. Her EKG shows atrial fibrillation with controlled ventricular response with nonspecific ST changes Hemoglobin is 14.4 Kidney function is stable with creatinine less than 1 REVIEW OF SYSTEMS 14 point review of system is negative except what is mentioned above in HPI. PHYSICAL EXAMINATION Vital signs reviewed. Head: Normocephalic. Eyes: Sclerae nonicteric. Neck: Brisk carotid upstroke, no jugular venous distention. Lungs: Clear to auscultation. Heart: Irregularly irregular S1-S2, no S3, no murmur or rub. Abdomen: Soft nontender, positive bowel sounds no organomegaly. Extremities: No edema, intact distal pulses. ASSESSMENT Newly Diagnosis atrial fibrillation with controlled ventricular response. Elevated [id number] score Prior history of CAD status post CABG in 2001 Snare polypectomy complicated by bleeding. Hemoglobin has been stable Hypertension Hyperlipidemia Reported ALLERGY to statins Type II diabetes PLAN Start Eliquis 5 mg twice a day. We had a detailed discussion about her risk of stroke and high bleeding risk. Patient is agreeable to try her self on systemic anticoagulation. He will follow-up with me in 2-3 weeks Reviewed her echocardiogram and it doesn't show any any significant mitral stenosis We will opt for rate control strategy with metoprolol continue her amlodipine and lisinopril without changes Okay to be discharged from Cardiac standpoint Past Medical History Past Medical History: Diabetes Mellitus, Hyperlipidemia, Hypertension, Myocardial Infarction (DC) Additional Past Medical History / Comment(s): gout, low iron/anemia-iron transfusions, hx falls, fx ribs, back pain, constipation when taking iron. Last Myocardial Infarction Date:: 2001 History of Any Multi-Drug Resistant Organisms: None Reported Past Surgical History: Cholecystectomy, Coronary Bypass/CABG, Heart Catheterization With Stent, Hernia Repair, Orthopedic Surgery Additional Past Surgical History / Comment(s): 5 way bypass CABG 2001, umbilical hernia, renee cataracts, ORIF rt ankle, egd, colonoscopy. Past Anesthesia/Blood Transfusion Reactions: Previous Problems w/ Anesthesia, Motion Sickness, Postoperative Nausea & Vomiting (PONV) Date of Last Stent Placement:: 1998 Past Psychological History: No Psychological Hx Reported Smoking Status: Former smoker Past Alcohol Use History: None Reported Additional Past Alcohol Use History / Comment(s): quit smoking 2001, started smoking age 18's Past Drug Use History: None Reported - Past Family History Mother Family Medical History: No Reported History Son(s) Family Medical History: Cancer Additional Family Medical History / Comment(s): pancreatic cancer Father Family Medical History: Congestive Heart Failure (CHF), Coronary Artery Disease (CAD) Medications and Allergies Home Medications Medication Instructions Recorded Confirmed Type Aspirin [Adult Low Dose Aspirin EC] 81 mg PO HS 11/28/21 10/20/22 History Benazepril/Hydrochlorothiazide 1 each PO QAM 11/28/21 10/20/22 History [Benazepril-Hctz 20-25 mg Tab] Metoprolol Succinate (ER) [Toprol 100 mg PO DAILY 11/28/21 10/20/22 History Xl] allopurinoL [Zyloprim] 100 mg PO DAILY 11/28/21 10/20/22 History amLODIPine [Norvasc] 5 mg PO DAILY 11/28/21 10/20/22 History Cholecalciferol [Vitamin D3 (125 125 mcg PO DAILY 10/19/22 10/20/22 History Mcg = 5000 Iu)] Glimepiride [Amaryl] 2 mg PO [id number] 10/19/22 10/20/22 History Allergies Allergy/AdvReac Type Severity Reaction Status Date / Time codeine Allergy Severe Swelling, Verified 10/20/22 09:12 "face got distorted", diff breathing saccharin Allergy Unknown Nausea & Verified 10/20/22 09:12 Vomiting Iodine and Iodide Containing Allergy Rash/Hives Verified 10/20/22 09:12 Produc Penicillins Allergy Unknown Verified 10/20/22 09:12 perfume Allergy Rash/Hives Verified 10/20/22 09:12 red dye Allergy Rash/Hives- Verified 10/20/22 09:12 RED DYE # 10 rubber, unspecified Allergy Rapid Verified 10/20/22 09:12 Heart Rate shellfish derived [Shellfish] Allergy Rash/Hives Verified 10/20/22 09:12 shrimp Allergy Rash/Hives Verified 10/20/22 09:12 [id number] Reductase Allergy Rash/Hives, Verified 10/20/22 09:12 Inhibitor "can not walk" Bandaids AdvReac Unknown Rash/Hives Uncoded 10/20/22 09:12 LEATHER AdvReac Unknown Rash/Hives Uncoded 10/20/22 09:12 artificial sugar AdvReac Nausea & Uncoded 10/20/22 09:12 Vomiting Physical Exam Vitals: Vital Signs Temp Pulse Resp BP Pulse Ox 10/21/22 11:39 98.2 F 67 16 140/67 92 L 10/21/22 08:00 98 F 77 18 162/86 93 L 10/21/22 03:16 98.5 F 71 18 135/77 93 L 10/20/22 23:22 98.1 F 71 18 148/84 93 L 10/20/22 19:35 98.3 F 67 16 163/72 94 L 10/20/22 16:00 98.0 F 70 18 117/60 97 Intake and Output 10/20/22 10/21/22 10/21/22 22:59 06:59 14:59 Intake Total 225 480 Balance 225 480 Intake: Oral 225 480 Other: Voiding Method Toilet Toilet Toilet # Voids 1 # Bowel Movements 1 Results 10/21/22 10:02 10/21/22 09:52 Cardiac Enzymes 10/21/22 Range/Units 09:52 AST 34 (14-36) U/L CBC 10/20/22 10/20/22 10/21/22 Range/Units 14:57 19:39 01:50 WBC 7.1 7.6 7.2 (3.8-10.6) k/uL RBC 4.90 4.83 4.54 (3.80-5.40) m/uL Hgb 14.3 14.2 13.2 (11.4-16.0) gm/dL Hct 45.0 44.9 42.2 (34.0-46.0) % Plt Count 178 179 165 (150-450) k/uL 10/21/22 Range/Units 10:02 WBC 7.2 (3.8-10.6) k/uL RBC 5.00 (3.80-5.40) m/uL Hgb 14.4 (11.4-16.0) gm/dL Hct 46.6 H (34.0-46.0) % Plt Count 179 (150-450) k/uL Comprehensive Metabolic Panel 10/20/22 10/21/22 Range/Units 14:57 09:52 Sodium 138 139 (137-145) mmol/L Potassium 4.2 3.9 (3.5-5.1) mmol/L Chloride 103 103 (98-107) mmol/L Carbon Dioxide 27 26 (22-30) mmol/L BUN 31 H 22 H (7-17) mg/dL Creatinine 0.82 0.84 (0.52-1.04) mg/dL Glucose 111 H 173 H (74-99) mg/dL Calcium 10.6 H 10.4 H (8.4-10.2) mg/dL AST 34 (14-36) U/L ALT 20 (4-34) U/L Alkaline Phosphatase 96 (38-126) U/L Total Protein 7.7 (6.3-8.2) g/dL Albumin 4.0 (3.5-5.0) g/dL Current Medications Generic Name Dose Route Start Last Admin Trade Name Freq PRN Reason Stop Dose Admin Acetaminophen 650 mg 10/20/22 13:11 Acetaminophen Tab 325 Mg Tab PO 11/19/22 13:12 Q6HR PRN Mild Pain or Fever > 100.5 Allopurinol 100 mg 10/21/22 09:00 10/21/22 09:05 Allopurinol 100 Mg Tab PO 11/20/22 09:01 100 mg DAILY JUAN DANIEL Administration Amlodipine Besylate 5 mg 10/21/22 09:00 10/21/22 09:05 Amlodipine 5 Mg Tab PO 11/20/22 09:01 5 mg DAILY JUAN DANIEL Administration Apixaban 5 mg 10/21/22 21:00 Apixaban 5 Mg Tab PO BID JUAN DANIEL Protocol Dextrose/Water 25 ml 10/20/22 13:18 Dextrose 50% Syringe 50 Ml IVP 11/19/22 13:19 PER PROTOCOL PRN Hypoglycemia Protocol Dextrose/Water 50 ml 10/20/22 13:18 Dextrose 50% Syringe 50 Ml IVP 11/19/22 13:19 PER PROTOCOL PRN Hypoglycemia Protocol Hydrochlorothiazide 25 mg 10/21/22 09:00 10/21/22 09:05 Hydrochlorothiazide 25 Mg Tab PO 11/20/22 09:01 25 mg QAM JUAN DANIEL Administration Sodium Chloride 1,000 mls @ 20 mls/hr 10/20/22 13:15 10/21/22 11:02 Saline 0.9% IV 11/19/22 13:16 20 mls/hr .Q24H JUAN DANIEL Administration Insulin Aspart 0 unit 10/20/22 17:30 10/21/22 11:31 Insulin Aspart (Novolog) 100 Unit/Ml Vial SQ 11/19/22 17:31 Not Given ACHS JUAN DANIEL Protocol Lisinopril 20 mg 10/21/22 09:00 10/21/22 09:05 Lisinopril 20 Mg Tab PO 11/20/22 09:01 20 mg QAM JUAN DANIEL Administration Melatonin 3 mg 10/20/22 13:11 Melatonin 3 Mg Tablet PO 11/19/22 13:12 HS PRN Insomnia Metoprolol Succinate 100 mg 10/21/22 09:00 10/21/22 09:06 Metoprolol Succinate (Er) 100 Mg Tab.Er.24h PO 11/20/22 09:01 100 mg DAILY JUAN DANIEL Administration Miscellaneous Information 1 each 10/21/22 10:26 Magnesium Replacement Protocol 1 Each Misc MISCELLANE DAILY PRN Per Protocol Protocol Naloxone HCl 0.2 mg 10/20/22 13:11 Naloxone 0.4 Mg/Ml 1 Ml Vial IV 11/19/22 13:12 Q2M PRN Opioid Reversal Pantoprazole Sodium 40 mg 10/20/22 21:00 10/21/22 09:06 Pantoprazole 40 Mg/10 Ml Vial IVP 11/19/22 21:01 40 mg BID JUAN DANIEL Administration Intake and Output 10/20/22 10/21/22 10/21/22 22:59 06:59 14:59 Intake Total 225 480 Balance 225 480 Intake: Oral 225 480 Other: Voiding Method Toilet Toilet Toilet # Voids 1 # Bowel Movements 1 10/21/22 10:02 10/21/22 09:52
[2022-10-21 16:44] LABS: Glucose,Whole Blood 95 mg/dL (70-110)
--- NOTE | 2022-10-21 17:48 | CA ---
Transthoracic Echo Report Name: Kareen Hurley Age: 81 Gender: F : 1940 Exam Date: 10/21/2022 10:38 Exam Location: [facility] Ht (in): 60 Wt (lb): 179 Ordering Physician: Ben Mckenna Attending/Referring Phys: Commercial Management Accountant Khalida Smith [facility] Procedure CPT: Indications: new onset atrial fib Cardiac Hx: Technical Quality: Fair Contrast 1: Total Dose (mL): Contrast 2: Total Dose (mL): MEASUREMENTS (Male / Female) Normal Values 2D ECHO LV Diastolic Diameter PLAX 4.5 cm 4.2 - 5.9 / 3.9 - 5.3 cm LV Systolic Diameter PLAX 3.4 cm IVS Diastolic Thickness 1.2 cm 0.6 - 1.0 / 0.6 - 0.9 cm LVPW Diastolic Thickness 1.1 cm 0.6 - 1.0 / 0.6 - 0.9 cm LV Relative Wall Thickness 0.5 LVOT Diameter 2.0 cm Ascending Aorta Diameter 3.1 cm M-MODE Aortic Root Diameter MM 2.5 cm LA Systolic Diameter MM 4.5 cm LA Ao Ratio MM 1.8 AV Cusp Separation MM 1.7 cm DOPPLER AV Peak Velocity 128.0 cm/s AV Peak Gradient 6.6 mmHg AV Mean Velocity 90.3 cm/s AV Mean Gradient 3.6 mmHg AV Velocity Time Integral 23.8 cm LVOT Peak Velocity 88.9 cm/s LVOT Peak Gradient 3.2 mmHg LVOT Velocity Time Integral 18.4 cm LVOT Stroke Volume 58.0 cm??? LVOT Stroke Volume Index 32.6 ml/m??? LVOT Cardiac Index 2082.8 cm???/min???m??? AV Area Cont Eq vti 2.4 cm??? AV Area Cont Eq pk 2.2 cm??? Mitral E Point Velocity 76.5 cm/s MV Deceleration Time 192.2 ms LV E' Lateral Velocity 8.9 cm/s Mitral E to LV E' Lateral Ratio 8.6 LV E' Septal Velocity 6.7 cm/s Mitral E to LV E' Septal Ratio 11.4 TR Peak Velocity 254.9 cm/s TR Peak Gradient 26.0 mmHg Right Atrial Pressure 3.0 mmHg Pulmonary Artery Systolic Pressu 29.0 mmHg Right Ventricular Systolic Press 29.0 mmHg FINDINGS Left Ventricle Mildly increased left ventricular wall thickness. Left ventricular cavity size normal. Normal left ventricular systolic function with no obvious regional wall motion abnormalities. Left ventricular ejection fraction is estimated at 55- 60%. Right Ventricle Mild right ventricular dilatation. Right Atrium Normal right atrial size. Left Atrium Severe left atrial dilatation. Mitral Valve Structurally normal mitral valve. Mitral valve thickened. Mild mitral regurgitation. Aortic Valve Trileaflet aortic valve. Aortic valve sclerosis. No aortic regurgitation. Tricuspid Valve Structurally normal tricuspid valve. Mild tricuspid regurgitation. Pulmonic Valve Pulmonic valve not well visualized. Pericardium No pericardial effusion. Echo free space anterior to the right ventricle likely represents a fat pad. Aorta Normal size aortic root and proximal ascending aorta. CONCLUSIONS Estimated LVEF is 55% Mild concentric LVH, normal LV size No obvious regional wall motion abnormality Severe left atrial dilatation No significant valvular abnormality Epicardial fat No prior echo to compare with Previewed by: Dr Renato Durbin (Electronically Signed) Final Date: 21 October 2022 17:47
[2022-10-21] MEDS: APIXABAN 5 MG TAB PO SCH (21:30)
[2022-10-21 22:57] LABS: HCT 39.3 % (34.0-46.0); HGB 12.8 gm/dL (11.4-16.0); Hypochromasia Slight; MCH 29.8 pg (25.0-35.0); MCHC 32.5 g/dL (31.0-37.0); MCV 91.9 fL (80.0-100.0); Mean Platelet Volume 7.9; Platelet Count 154 k/uL (150-450); RBC 4.28 m/uL (3.80-5.40); RDW 13.4 % (11.5-15.5); WBC 7.2 k/uL (3.8-10.6)
[2022-10-22 06:00] LABS: Glucose,Whole Blood 104 mg/dL (70-110)
[2022-10-22] MEDS: INSULIN ASPART (NovoLOG) 100 UNIT/ML VIAL SQ SCH ×4 (06:04→21:06)
[2022-10-22] MEDS: hydroCHLOROthiazide 25 MG TAB PO SCH (08:47)
[2022-10-22] MEDS: amLODIPine 5 MG TAB PO SCH (08:47)
[2022-10-22] MEDS: allopurinoL 100 MG TAB PO SCH (08:47)
[2022-10-22] MEDS: APIXABAN 5 MG TAB PO SCH ×2 (08:47→21:14)
[2022-10-22] MEDS: METOPROLOL SUCCINATE (ER) 100 MG TAB.ER.24H PO SCH (08:48)
[2022-10-22] MEDS: lisinopriL 20 MG TAB PO SCH (08:48)
[2022-10-22] MEDS: PANTOPRAZOLE 40 MG/10 ML VIAL IVP SCH ×2 (08:48→21:14)
[2022-10-22 08:50] LABS: HCT 44.8 % (34.0-46.0); HGB 13.9 gm/dL (11.4-16.0); Hypochromasia Slight; MCH 28.8 pg (25.0-35.0); MCHC 31.1 g/dL (31.0-37.0); MCV 92.6 fL (80.0-100.0); Mean Platelet Volume 7.6; Platelet Count 184 k/uL (150-450); RBC 4.83 m/uL (3.80-5.40); RDW 13.4 % (11.5-15.5)
--- NOTE | 2022-10-22 09:32 | P.PN ---
Subjective Progress Note Date: 10/22/22 Principal diagnosis: Upper GI bleed Patient doing well today. Denies abdominal pain. She had a brown stool yesterday. No nausea or vomiting. Tolerating diet. She would like to go home today. Hemoglobin 13.9. She apparently was given eloquis yesterday. Objective - Vital Signs Vital signs: Vital Signs Temp 97.6 F 10/22/22 04:00 Pulse 79 10/22/22 04:00 Resp 18 10/22/22 04:00 BP 153/70 10/22/22 04:00 Pulse Ox 94 L 10/22/22 08:40 FiO2 Intake & Output 10/21/22 10/22/22 10/22/22 18:59 06:59 18:59 Intake Total 720 Balance 720 Intake: Oral 720 Other: Voiding Method Toilet Toilet # Voids 2 2 # Bowel Movements 1 - Exam Abdomen: Soft, nontender, nondistended - Labs CBC & Chem 7: 10/22/22 08:31 10/21/22 09:52 Labs: Abnormal Lab Results - Last 24 Hours (Table) 10/21/22 10/21/22 10/21/22 Range/Units 09:52 10:02 11:28 Hct 46.6 H (34.0-46.0) % BUN 22 H (7-17) mg/dL Glucose 173 H (74-99) mg/dL POC Glucose (mg/dL) 130 H (70-110) mg/dL Calcium 10.4 H (8.4-10.2) mg/dL Magnesium 1.5 L (1.6-2.3) mg/dL Total Bilirubin 1.4 H (0.2-1.3) mg/dL Assessment and Plan (1) Upper GI bleed Narrative/Plan: Patient doing well at this time. Hemoglobin remained stable. Possible discharge today or tomorrow after seen by primary service. Patient instructed to return to hospital if melanotic stools or rectal bleeding noted. Current Visit: Yes Status: Acute Code(s): K92.2 - GASTROINTESTINAL HEMORRHAGE, UNSPECIFIED SNOMED Code(s): 65049208 (2) Gastric polyp Current Visit: Yes Status: Acute Code(s): K31.7 - POLYP OF STOMACH AND DUODENUM SNOMED Code(s): 72880404
[2022-10-22] MEDS: SODIUM CHLORIDE 0.9% 1,000 ML IV SCH (10:16)
[2022-10-22 11:26] LABS: Glucose,Whole Blood 117 mg/dL (70-110)
--- NOTE | 2022-10-22 11:52 | P.PN ---
Subjective Progress Note Date: 10/22/22 Subjective: Patient is doing well from cardiac standpoint. She continues to be included control atrial fibrillation at this time. She is hemodynamics stable. Her hemoglobin did drop from 14-12. At is to watch her hemoglobin tomorrow. I did start her on Eliquis. She should follow up outpatient with me to get evaluated for rhythm control strategy PHYSICAL EXAMINATION Vital signs reviewed. Head: Normocephalic. Eyes: Sclerae nonicteric. Neck: Brisk carotid upstroke, no jugular venous distention. Lungs: Clear to auscultation. Heart: Irregularly irregular S1-S2, no S3, no murmur or rub. Abdomen: Soft nontender, positive bowel sounds no organomegaly. Extremities: No edema, intact distal pulses. ASSESSMENT Newly Diagnosis atrial fibrillation with controlled ventricular response. Elevated [id number] score Prior history of CAD status post CABG in 2001 Snare polypectomy complicated by bleeding. Hemoglobin has been stable Hypertension Hyperlipidemia Reported ALLERGY to statins Type II diabetes PLAN Start Eliquis 5 mg twice a day. We had a detailed discussion about her risk of stroke and high bleeding risk. Patient is agreeable to try her self on systemic anticoagulation. He will follow-up with me in 2-3 weeks. Reviewed her echocardiogram and it doesn't show any any significant mitral stenosis We will opt for rate control strategy with metoprolol. Follow up outpatient to evaluate for rhythm control strategy and possible cardioversion continue her amlodipine and lisinopril without changes Monitor hemoglobin levels. If stable, okay to be discharged from cardiac standpoint HISTORY OF PRESENTING ILLNESS 81-year-old with prior history of coronary artery disease status post CABG in 2001, previous PCI before 2001, hypertension, hyperlipidemia, type 2 diabetes, had issues with anemia and lower GI bleeding. She had a EGD with biopsy and snare polypectomy done and clip placement. Postoperatively she was noticed to have atrial fibrillation with controlled ventricular rate. Patient reports that she has never had prior history of atrial fibrillation. She is not on any blood thinners at this time. She denies any symptoms of palpitations lightheadedness or dizziness after her endoscopy procedure. She denies any chest pain chest pressure. She denies any disruption of excess tolerance lately. Her EKG shows atrial fibrillation with controlled ventricular response with nonspecific ST changes Hemoglobin is 14.4 Kidney function is stable with creatinine less than 1 REVIEW OF SYSTEMS 14 point review of system is negative except what is mentioned above in HPI. Objective - Vital Signs Vital signs: Vital Signs Temp 97.7 F 10/22/22 08:00 Pulse 79 10/22/22 08:00 Resp 18 10/22/22 08:00 BP 168/75 10/22/22 08:00 Pulse Ox 94 L 10/22/22 08:40 FiO2 Intake & Output 10/21/22 10/22/22 10/22/22 18:59 06:59 18:59 Intake Total 720 240 Balance 720 240 Intake: Oral 720 240 Other: Voiding Method Toilet Toilet Toilet # Voids 2 2 1 # Bowel Movements 1 - Labs CBC & Chem 7: 10/22/22 08:31 10/21/22 09:52 Labs: Abnormal Lab Results - Last 24 Hours (Table) 10/22/22 Range/Units 11:25 POC Glucose (mg/dL) 117 H (70-110) mg/dL
[2022-10-22 16:09] LABS: Glucose,Whole Blood 160 mg/dL (70-110)
--- NOTE | 2022-10-22 17:09 | P.PN ---
Subjective Progress Note Date: 10/22/22 History of Presenting Illness: Patient is a very pleasant 81-year-old female with a past medical history of CAD status post CABG 5 followed by stenting, hypertension, hyperlipidemia, hin-vvprhhr-gqbttyrhu diabetes mellitus, and iron deficiency anemia. She under went an EGD with biopsy and snare polypectomy earlier today with clip placement. Snare polypectomy was complicated by active bleeding and after hemostasis achieved, lead generation representative recommending inpatient admission for close monitoring of hemoglobin and/or recurrence of bleeding. During postoperative period patient went into new onset atrial fibrillation with a controlled ventricular rate. Discussed patient's history, surgical procedure, and recommendations by surgeon with gastroenterology BOTTOM BUFFER and lead generation representative. Patient is being admitted under our services with consultation to general surgery (Dr. Ochoa) and cardiology (Dr. Durbin). EKG reviewed showing atrial fibrillation with a controlled ventricular rate at 75 bpm with inferiolateral T- wave inversion upon personal review and interpretation. Hemoglobin has been trended every 6 hours and has remained stable resulting at 14.3, 14.2, 13.2, and 14.4. CBC remains unremarkable and BMP showing elevated BUN of 22, glucose of 173, magnesium of 1.5, and elevated bili of 1.4. Physical exam: Patient seen and fully evaluated at bedside this morning. She was sitting up in the chair and denies having any complaints or pain at this time. Patient remains in atrial fibrillation currently with a controlled ventricular rate. Hemoglobin remains stable, however did decrease from 14.4 down to 12.8 status post receiving Eliquis. Discussed this with general surgeon, recommending continued monitoring of hemoglobin levels. Discussed this with patient Will repeat hemoglobin levels every 12 hours and if no signs of bleeding and hemoglobin remains stable will plan for discharge home tomorrow morning. Vital signs reviewed and stable. General: Nontoxic, no distress and appears stated age. Derm: Skin warm and dry, normal coloration for ethnicity. Head: Atraumatic, normocephalic and symmetric. Eyes: EOMs intact, no lid lag, and anicteric sclera Mouth: no lip lesions, mucus membranes moist Cardiovascular: Irregularly irregular, systolic murmur, positive posterior tibial pulses bilaterally, and cap refill < 2 seconds. Lungs: Respirations even, regular, and unlabored on room air. Lungs CTA bilaterally, no rhonchi, no rales, no wheezing, and no accessory muscle usage. Abdominal: soft, nontender to palpation, no guarding, no appreciable organomegaly Ext: ROM intact. No gross muscle atrophy, scant lower extremity edema, no contractures Neuro: Speech clear, face symmetrical and CN II-XII grossly intact with no noted focal neuro deficits Psych: Alert and oriented to person, place, time, and situation. Appropriate and pleasant affect. Assessment and Plan of Care: New-onset A. fib with a controlled ventricular rate Status post Snare polypectomy complicated by active bleeding Prerenal azotemia Elevated total bili of 1.4 Hypomagnesemia History of CAD status post CABG 5 followed by stent placement Hypertension Hyperlipidemia Iron deficiency anemia Ntv-Dncylsx-vbxhwhccs diabetes mellitus -Gen. surgery following. Hemoglobin remains stable, however did decrease from 14.4 down to 12.8 status post receiving Eliquis. Discussed this with general surgeon, recommending continued monitoring of hemoglobin levels. Discussed this with patient Will repeat hemoglobin levels every 12 hours and if no signs of bleeding and hemoglobin remains stable will plan for discharge home tomorrow morning. -Orders placed for CBC every 12 hours. -Cardiology following and started patient on Eliquis 5 mg twice daily. Egg Processor recommending patient follow up outpatient to evaluate for rhythm control strategy and possible cardioversion. -Echocardiogram completed and report reviewed showing preserved EF of 55% with mild LVH and severe left atrial dilation. -Continue telemetry monitoring. -Continue Protonix 40 mg IVP twice daily -Diet was advanced to Pured diet by general surgeon this morning and patient tolerating well. -Continue MIA hose and SCDs for DVT prophylaxis -Hold glyburide and continue glycemic protocol with NovoLog sliding scale. Data review: Vital signs reviewed and stable. Blood pressure 168/75, heart rate 79, respiratory rate 18, temp 97.7F, SpO2 of 92% on room air. CODE STATUS: Full code DVT prophylaxis: Eliquis Discussed with: Patient, RN, boarding room fixer and general surgeon Anticipated discharge date: Plans for discharge home tomorrow morning if hemoglobin remains stable. Anticipated discharge place: Home Patient was seen independently by Nurse Practitioner. This document was prepared using [employer] dictation software. Please allow for errors in showroom manager while rare they do occur. Ben Mckenna NP rendered care for this patient independently, reviewed the findings and plan as documented in the note above. I did not physically speak with or examine the patient on this date. Objective - Vital Signs Vital signs: Vital Signs Temp 97.6 F 10/22/22 04:00 Pulse 79 10/22/22 04:00 Resp 18 10/22/22 04:00 BP 153/70 10/22/22 04:00 Pulse Ox 92 L 10/22/22 04:00 FiO2 Intake & Output 10/21/22 10/22/22 10/22/22 18:59 06:59 18:59 Intake Total 720 Balance 720 Intake: Oral 720 Other: Voiding Method Toilet Toilet # Voids 2 2 # Bowel Movements 1 - Labs CBC & Chem 7: 10/23/22 08:42 10/23/22 08:42 Labs: Abnormal Lab Results - Last 24 Hours (Table) 10/21/22 10/21/22 10/21/22 Range/Units 09:52 10:02 11:28 Hct 46.6 H (34.0-46.0) % BUN 22 H (7-17) mg/dL Glucose 173 H (74-99) mg/dL POC Glucose (mg/dL) 130 H (70-110) mg/dL Calcium 10.4 H (8.4-10.2) mg/dL Magnesium 1.5 L (1.6-2.3) mg/dL Total Bilirubin 1.4 H (0.2-1.3) mg/dL
[2022-10-22 20:09] LABS: Glucose,Whole Blood 162 mg/dL (70-110)
[2022-10-23 06:06] LABS: Glucose,Whole Blood 110 mg/dL (70-110)
[2022-10-23] MEDS: INSULIN ASPART (NovoLOG) 100 UNIT/ML VIAL SQ SCH ×2 (07:01→11:49)
[2022-10-23] MEDS: amLODIPine 5 MG TAB PO SCH (08:26)
[2022-10-23] MEDS: hydroCHLOROthiazide 25 MG TAB PO SCH (08:26)
[2022-10-23] MEDS: allopurinoL 100 MG TAB PO SCH (08:26)
[2022-10-23] MEDS: PANTOPRAZOLE 40 MG/10 ML VIAL IVP SCH (08:26)
[2022-10-23] MEDS: APIXABAN 5 MG TAB PO SCH (08:26)
[2022-10-23] MEDS: METOPROLOL SUCCINATE (ER) 100 MG TAB.ER.24H PO SCH (08:27)
[2022-10-23] MEDS: lisinopriL 20 MG TAB PO SCH (08:27)
[2022-10-23 08:45] VITALS: BP 149/81; PULSE 62; RESP 16; TEMP 97.4
[2022-10-23 09:50] LABS: ALT 23 U/L (4-34); AST 44 U/L (14-36); African American GFR (CKD) 69 (>60 ml/min/1.73 sqM); Albumin 4.1 g/dL (3.5-5.0); Alkaline Phosphatase 100 U/L (38-126); Anion Gap 12 mmol/L; Blood Urea Nitrogen 21 mg/dL (7-17); Calcium 10.9 mg/dL (8.4-10.2); Carbon Dioxide 22 mmol/L (22-30); Chloride 102 mmol/L (98-107); Glucose 149 mg/dL (74-99); Magnesium 1.6 mg/dL (1.6-2.3); Non-African American GFR(CKD) 60 (>60 ml/min/1.73 sqM); Sodium 136 mmol/L (137-145); Total Bilirubin 1.5 mg/dL (0.2-1.3); Total Protein 7.8 g/dL (6.3-8.2)
[2022-10-23 09:53] LABS: HCT 46.6 % (34.0-46.0); HGB 14.9 gm/dL (11.4-16.0); Hypochromasia Slight; MCHC 32.1 g/dL (31.0-37.0); MCV 93.4 fL (80.0-100.0); Mean Platelet Volume 7.8; Platelet Count 150 k/uL (150-450); RBC 4.99 m/uL (3.80-5.40); RDW 13.5 % (11.5-15.5); WBC 8.3 k/uL (3.8-10.6)
--- NOTE | 2022-10-23 10:02 | P.DS ---
Providers Date of admission: 10/20/22 11:42 10/20/22 Expected date of discharge: 10/23/22 Attending physician: Manny St MD Consults: 10/20/22 11:44 Consult Physician Routine Consulting Provider: Bj Ochoa Consult Reason/Comments: Monitor for GI bleed, s/p gastric polypectomy Do you want consulting provider notified?: Yes 10/20/22 11:55 Consult Physician Routine Consulting Provider: Manny St Consult Reason/Comments: medical management, new admit Do you want consulting provider notified?: Yes 10/20/22 12:23 Consult Physician Routine Consulting Provider: Temo Johnson Consult Reason/Comments: NEW ONSET A-FIB Do you want consulting provider notified?: Yes Primary care physician: Alberto Mcleod MD Hospital Course: Discharge Diagnosis: New-onset A. fib with a controlled ventricular rate Status post Snare polypectomy complicated by active bleeding. Hemoglobin stable at time of discharge at 14.9. With no noted signs of bleeding. Prerenal azotemia Elevated total bili of 1.4 Hypomagnesemia, replaced. Patient discharged home on Mag-Ox 400 mg daily. History of CAD status post CABG 5 followed by stent placement Hypertension Hyperlipidemia Iron deficiency anemia Zuw-Cizknen-kcfvsdvwx diabetes mellitus Hospital Course: Patient is a very pleasant 81-year-old female with a past medical history of CAD status post CABG 5 followed by stenting, hypertension, hyperlipidemia, bhc-xqnnqqm-mrsnrbyzu diabetes mellitus, and iron deficiency anemia. She underwent an EGD with biopsy and snare polypectomy earlier today with clip placement. Snare polypectomy was complicated by active bleeding and after hemostasis achieved, drapery inspector recommending inpatient admission for close monitoring of hemoglobin and/or recurrence of bleeding. During postoperative period patient went into new onset atrial fibrillation with a controlled ventricular rate. Discussed patient's history, surgical procedure, and recommendations by surgeon with gastroenterology PILLOW FILLER and drapery inspector. Patient is being admitted under our services with consultation to general surgery (Dr. Ochoa) and cardiology (Dr. Durbin). EKG reviewed showing atrial fibrillation with a controlled ventricular rate at 75 bpm with inferiolateral T- wave inversion upon personal review and interpretation. Hemoglobin has been trended every 6 hours and has remained stable resulting at 14.3, 14.2, 13.2, and 14.4. CBC remains unremarkable and BMP showing elevated BUN of 22, glucose of 173, magnesium of 1.5, and elevated bili of 1.4. Patient was admitted under our services and hemoglobin was closely monitored and trended. Patient had normal bowel movements with no evidence of bleeding noted. She was started on anticoagulation by cardiology and underwent continued monitoring to monitor for any signs/symptoms of bleeding. Hemoglobin remained stable. Echocardiogram was completed showing preserved EF of 55% with mild concentric LVH, severe left atrial dilation and no significant valvular abnormalities reported. Patient has been cleared by cardiology for outpatient follow-up in their office and cleared by general surgeon for outpatient follow-up with drapery inspector as discussed. At time of discharge CBC showing stable hemoglobin of 14.9. CMP and magnesium remain pending. Vital signs stable blood pressure 149/81, heart rate 62, respiratory rate 16, temp 97.4F, SpO2 of 93% on room air. Patient medically stable for discharge at this time and to follow up outpatient with PCP, para operator, and drapery inspector as discussed. Physical exam: Vital signs reviewed and stable. General: Nontoxic, no distress and appears stated age. Derm: Skin warm and dry, normal coloration for ethnicity. Head: Atraumatic, normocephalic and symmetric. Eyes: EOMs intact, no lid lag, and anicteric sclera Mouth: no lip lesions, mucus membranes moist Cardiovascular: Irregularly irregular, systolic murmur, positive posterior tibial pulses bilaterally, and cap refill < 2 seconds. Lungs: Respirations even, regular, and unlabored on room air. Lungs CTA bilaterally, no rhonchi, no rales, no wheezing, and no accessory muscle usage. Abdominal: soft, nontender to palpation, no guarding, no appreciable organomegaly Ext: ROM intact. No gross muscle atrophy, scant lower extremity edema, no contractures Neuro: Speech clear, face symmetrical and CN II-XII grossly intact with no noted focal neuro deficits Psych: Alert and oriented to person, place, time, and situation. Appropriate and pleasant affect. A total of 33 minutes of time were spent preparing this complex discharge summary. Pt was discharged on 10/23/22 at 9:59 AM Patient was seen independently by Nurse Practitioner. This document was prepared using [employer] dictation software. Please allow for errors in interior block wirer while rare they do occur. Patient Condition at Discharge: Stable Plan - Discharge Summary New Discharge Prescriptions: New Magnesium Oxide [Mag-Ox] 400 mg PO DAILY 30 Days #30 tablet Apixaban [Eliquis] 5 mg PO BID 30 Days #60 tab Pantoprazole [Protonix] 40 mg PO DAILY 30 Days #30 tab Continue amLODIPine [Norvasc] 5 mg PO DAILY Benazepril/Hydrochlorothiazide [Benazepril-Hctz 20-25 mg Tab] 1 each PO QAM Cholecalciferol [Vitamin D3 (125 Mcg = 5000 Iu)] 125 mcg PO DAILY Metoprolol Succinate (ER) [Toprol XL] 100 mg PO DAILY allopurinoL [Zyloprim] 100 mg PO DAILY Aspirin [Adult Low Dose Aspirin EC] 81 mg PO HS Glimepiride [Amaryl] 2 mg PO AC-BRKFST Discharge Medication List Aspirin [Adult Low Dose Aspirin EC] 81 mg PO HS 11/28/21 [History] Benazepril/Hydrochlorothiazide [Benazepril-Hctz 20-25 mg Tab] 1 each PO QAM 11/28/21 [History] Metoprolol Succinate (ER) [Toprol XL] 100 mg PO DAILY 11/28/21 [History] allopurinoL [Zyloprim] 100 mg PO DAILY 11/28/21 [History] amLODIPine [Norvasc] 5 mg PO DAILY 11/28/21 [History] Cholecalciferol [Vitamin D3 (125 Mcg = 5000 Iu)] 125 mcg PO DAILY 10/19/22 [History] Glimepiride [Amaryl] 2 mg PO AC-BRKFST 10/19/22 [History] Apixaban [Eliquis] 5 mg PO BID 30 Days #60 tab 10/23/22 [Rx] Magnesium Oxide [Mag-Ox] 400 mg PO DAILY 30 Days #30 tablet 10/23/22 [Rx] Pantoprazole [Protonix] 40 mg PO DAILY 30 Days #30 tab 10/23/22 [Rx] Follow up Appointment(s)/Referral(s): Renato Durbin MD [Medical Doctor] - 11/01/22 2:00 pm (0) Curly Paz MD [STAFF PHYSICIAN] - 1 Week (Pt to call office regarding new patient information required.) Tamra Austin MD [STAFF PHYSICIAN] - 11/02/22 10:30 am (With PILLOW FILLER Amanda) Patient Instructions/Handouts: A-fib (Atrial Fibrillation) (DC), Gastrointestinal Bleeding (DC), Anemia (DC) Activity/Diet/Wound Care/Special Instructions: Activity: As tolerated. Take breaks as needed. Diet: Recommend pured/soft diet 1 week followed by advancing to Heart healthy and carb consistent diet. Avoid salts, or foods with hidden salts such as canned or boxed foods and frozen dinners. Extra salt makes your heart work harder and traps the fluid in your body for longer. Special Instructions: Take all of your medications as directed and remember to keep all of your do ctor's appointments and follow-up as needed. You are also being discharged home on a blood thinner, Eliquis. This is very important to take daily as directed until otherwise advised by your cardiol ogist-Dr. Durbin Being that you are being placed on a blood thinner it is very important to watch for any signs of bleeding and notify your doctor immediately if you notice any bleeding. It is also important to remove any trip hazards such as rugs or loose extension cords from your home to prevent unnecessary falls and if you do experience a fall or head injury, it is extremely important to be evaluated by a medical provider immediately to ensure no internal bleeding. Thank you for allowing us to participate in your care, it was truly a pleasure having you for our patient!!! Discharge Disposition: HOME SELF-CARE
[2022-10-23 10:04] LABS: Potassium 4.3 mmol/L (3.5-5.1)
--- NOTE | 2022-10-23 10:59 | P.PN ---
Subjective Progress Note Date: 10/23/22 PROGRESS NOTE The patient is an 81-year-old female, status post CABG in 2001 in [place] who presented with atrial fibrillation of unknown duration. She is doing well this morning. Her blood pressure is stable. Her echocardiogram showed a preserved systolic function. She is ambulating without difficulty. She denies any dizziness or palpitations, no nausea. Medications: Amlodipine 5 mg daily, insulin, lisinopril 20 mg daily, hydrochlorothiazide 25 mg daily, metoprolol succinate 100 mg daily, Eliquis 5 mg twice a day PHYSICAL EXAMINATION: Blood pressure 136/70 heart rate 60 LUNGS: Clear to auscultation HEART: Irregular rate and rhythm, S1, S2. No S3. Systolic ejection murmur ABDOMEN: Soft, nontender, no organomegaly EXTREMETIES: No edema LAB: BUN 21, creatinine 0.89, potassium 4.3 IMPRESSION: 1. Atrial fibrillation, rate controlled, anticoagulation started 2. Status post CABG 21 years ago, stable 3. Hypertension 4. Diabetes 5. Hyperlipidemia not on treatment, patient had significant myalgia with statin PLAN: 1. Continue present therapy 2. Probable discharge home today 3. Follow-up as an outpatient 4. Evaluate as an outpatient for possible addition of ezetimibe Objective - Vital Signs Vital signs: Vital Signs Temp 97.4 F L 10/23/22 08:25 Pulse 62 10/23/22 08:25 Resp 16 10/23/22 08:25 BP 149/81 10/23/22 08:25 Pulse Ox 94 L 10/23/22 09:10 FiO2 Intake & Output 10/22/22 10/23/22 10/23/22 18:59 06:59 18:59 Intake Total 240 Balance 240 Intake: Oral 240 Other: Voiding Method Toilet Toilet Toilet # Voids 2 1 - Labs CBC & Chem 7: 10/23/22 08:42 10/23/22 08:42 Labs: Abnormal Lab Results - Last 24 Hours (Table) 10/22/22 10/22/22 10/22/22 Range/Units 11:25 16:07 20:08 Hct (34.0-46.0) % Sodium (137-145) mmol/L BUN (7-17) mg/dL Glucose (74-99) mg/dL POC Glucose (mg/dL) 117 H 160 H 162 H (70-110) mg/dL Calcium (8.4-10.2) mg/dL Total Bilirubin (0.2-1.3) mg/dL AST (14-36) U/L 10/23/22 10/23/22 Range/Units 08:42 08:42 Hct 46.6 H (34.0-46.0) % Sodium 136 L (137-145) mmol/L BUN 21 H (7-17) mg/dL Glucose 149 H (74-99) mg/dL POC Glucose (mg/dL) (70-110) mg/dL Calcium 10.9 H (8.4-10.2) mg/dL Total Bilirubin 1.5 H (0.2-1.3) mg/dL AST 44 H (14-36) U/L
[2022-10-23 11:39] LABS: Glucose,Whole Blood 136 mg/dL (70-110)
--- NOTE | 2022-10-23 13:09 | P.PN ---
Subjective Progress Note Date: 10/23/22 Principal diagnosis: Upper GI bleed Patient doing well today. No stool since yesterday. No rectal bleeding or melena. Hemoglobin stable at 14.9. Objective - Vital Signs Vital signs: Vital Signs Temp 97.4 F L 10/23/22 08:25 Pulse 62 10/23/22 08:25 Resp 16 10/23/22 08:25 BP 149/81 10/23/22 08:25 Pulse Ox 94 L 10/23/22 09:10 FiO2 Intake & Output 10/22/22 10/23/22 10/23/22 18:59 06:59 18:59 Intake Total 240 Balance 240 Intake: Oral 240 Other: Voiding Method Toilet Toilet Toilet # Voids 2 1 - Exam Abdomen: Soft, nontender, nondistended - Labs CBC & Chem 7: 10/23/22 08:42 10/23/22 08:42 Labs: Abnormal Lab Results - Last 24 Hours (Table) 10/22/22 10/22/22 10/23/22 Range/Units 16:07 20:08 08:42 Hct 46.6 H (34.0-46.0) % Sodium (137-145) mmol/L BUN (7-17) mg/dL Glucose (74-99) mg/dL POC Glucose (mg/dL) 160 H 162 H (70-110) mg/dL Calcium (8.4-10.2) mg/dL Total Bilirubin (0.2-1.3) mg/dL AST (14-36) U/L 10/23/22 10/23/22 Range/Units 08:42 11:36 Hct (34.0-46.0) % Sodium 136 L (137-145) mmol/L BUN 21 H (7-17) mg/dL Glucose 149 H (74-99) mg/dL POC Glucose (mg/dL) 136 H (70-110) mg/dL Calcium 10.9 H (8.4-10.2) mg/dL Total Bilirubin 1.5 H (0.2-1.3) mg/dL AST 44 H (14-36) U/L Assessment and Plan (1) Upper GI bleed Narrative/Plan: Patient doing well today. Patient being discharged by primary service. Patient will monitor for recurrent bleeding at home. Follow-up with GI. Current Visit: No Status: Acute Code(s): K92.2 - GASTROINTESTINAL HEMORRHAGE, UNSPECIFIED SNOMED Code(s): 66358141 (2) Gastric polyp Current Visit: No Status: Acute Code(s): K31.7 - POLYP OF STOMACH AND DUODENUM SNOMED Code(s): 48994449
== END 2022-10-23 13:36 | disposition home or self-care (01) | DRG 310 ==
LOC: ORWHC2ENDO 08:44 → 3SCARD 11:42 → ORWHC2ENDO 11:42 → 3SCARD 13:24
PROVIDERS: ADMIT Student in an Organized Health Care Education/Training Program; ATTEND Student in an Organized Health Care Education/Training Program
PROC: 0DB78ZX Excision of Stomach, Pylorus, Via Natural or Artificial Opening Endoscopic, Diagnostic (ICD-10-PCS; principal; 2022-10-20 09:45)
PROC: 0W3P8ZZ Control Bleeding in Gastrointestinal Tract, Via Natural or Artificial Opening Endoscopic (ICD-10-PCS; 2022-10-20 09:45)
DX: I48.91 Unspecified atrial fibrillation (principal); D50.9 Iron deficiency anemia, unspecified; E83.42 Hypomagnesemia; Z87.19 Personal history of other diseases of the digestive system; I25.10 Atherosclerotic heart disease of native coronary artery without angina pectoris; I10 Essential (primary) hypertension; I08.1 Rheumatic disorders of both mitral and tricuspid valves; Z79.82 Long term (current) use of aspirin; R01.1 Cardiac murmur, unspecified; I25.2 Old myocardial infarction; M10.9 Gout, unspecified; Z79.84 Long term (current) use of oral hypoglycemic drugs; E78.5 Hyperlipidemia, unspecified; E11.9 Type 2 diabetes mellitus without complications; K31.7 Polyp of stomach and duodenum; Z79.899 Other long term (current) drug therapy; Z82.49 Family history of ischemic heart disease and other diseases of the circulatory system; Z88.8 Allergy status to other drugs, medicaments and biological substances; R29.6 Repeated falls; Z80.0 Family history of malignant neoplasm of digestive organs; Z87.891 Personal history of nicotine dependence; Z95.5 Presence of coronary angioplasty implant and graft; Z95.1 Presence of aortocoronary bypass graft; Z88.5 Allergy status to narcotic agent; Z91.041 Radiographic dye allergy status; Z90.49 Acquired absence of other specified parts of digestive tract; Z98.42 Cataract extraction status, left eye; Z98.41 Cataract extraction status, right eye; Z91.81 History of falling; Z91.013 Allergy to seafood; Z88.0 Allergy status to penicillin; Z91.018 Allergy to other foods; Z91.048 Other nonmedicinal substance allergy status
CPT/HCPCS: 43239; 43251; 43255; 80048; 80053; 83036; 83735; 85027; 88305; 93306; 94760

== ENCOUNTER 2023-02-06 06:18 | Day surgery (SDC) | payer MEDICARE ==
[2023-02-01 13:02] VITALS: BMI 34.0
--- NOTE | 2023-02-05 19:29 | P.HPOB ---
History of Present Illness H&P Date: 02/05/23 Chief Complaint: Postmenopausal bleeding, endometrial thickening This is a 82 y.o. female, 4, para 4, who presents for dilatation and curettage with hysteroscopy due to postmenopausal bleeding and endometrial thickening on ultrasound. She was originally admitted to the hospital an EGD with a bleeding polyp. She was diagnosed with atrial fibrillation during that admission and was started on Eliquis. She was diagnosed with COVID on 11/14/2022 and stopped the Eliquis that day. She started bleeding on 11/18/2022 and it lasted 10 days. Her pelvic ultrasound showed uterus measuring 7.4 x 5.5 x 6.9 cm with endometrium measuring 1.8 cm and an approximate 2 cm calcified fibroid. She was noted to have a small cervical polyp on exam in the office. This was removed and was benign. OB Hx: . 4 vaginal deliveries. Advanced Practice Provider Hx: Menopause age 41-42. Social Hx: . Retired. Review of Systems Constitutional: Denies chills, Denies fever Eyes: denies blurred vision, denies pain Ears, nose, mouth and throat: Denies headache, Denies sore throat Cardiovascular: Denies chest pain, Denies shortness of breath Respiratory: Denies cough Gastrointestinal: Reports constipation, Denies abdominal pain, Denies diarrhea, Denies nausea, Denies vomiting Genitourinary: Reports abnormal vaginal bleeding Menstruation: Reports postmenopausal Musculoskeletal: Reports low back pain, Reports myalgias Integumentary: Denies pruritus, Denies rash Neurological: Denies numbness, Denies weakness Psychiatric: Denies anxiety, Denies depression Endocrine: Denies fatigue, Denies weight change Past Medical History Past Medical History: Atrial Fibrillation, Coronary Artery Disease (CAD), Diabetes Mellitus, Hyperlipidemia, Hypertension, Myocardial Infarction (AL), Osteoarthritis (OA) Additional Past Medical History / Comment(s): gout, low iron/anemia-iron transfusions, a-fib dx september 2022 with Eliquis., hx falls with fx ankle & ribs., back pain, constipation when taking iron., hx stomach ulcer, stomach polyp., post menopause bleeding., pt states blood transfusions with iron transfusions. Last Myocardial Infarction Date:: 2001 History of Any Multi-Drug Resistant Organisms: None Reported Past Surgical History: Cholecystectomy, Coronary Bypass/CABG, Heart Catheterization With Stent, Hernia Repair, Orthopedic Surgery Additional Past Surgical History / Comment(s): 5 way bypass CABG 2001, umbilical hernia, renee cataracts, ORIF rt ankle, egd with polyp, colonoscopy. Past Anesthesia/Blood Transfusion Reactions: Previous Problems w/ Anesthesia, Motion Sickness, Postoperative Nausea & Vomiting (PONV) Date of Last Stent Placement:: 1998 Past Psychological History: No Psychological Hx Reported Smoking Status: Former smoker Past Alcohol Use History: None Reported Additional Past Alcohol Use History / Comment(s): quit smoking 2001, started smoking age 18's Past Drug Use History: None Reported - Past Family History Mother Family Medical History: No Reported History Son(s) Family Medical History: Cancer Additional Family Medical History / Comment(s): pancreatic cancer Father Family Medical History: Congestive Heart Failure (CHF), Coronary Artery Disease (CAD) Medications and Allergies Home Medications Medication Instructions Recorded Confirmed Type Aspirin [Adult Low Dose Aspirin EC] 81 mg PO HS 11/28/21 02/01/23 History Benazepril/Hydrochlorothiazide 1 tab PO DAILY 11/28/21 02/06/23 History [Benazepril-Hctz 20-25 mg Tab] Metoprolol Succinate (ER) [Toprol 100 mg PO DAILY 11/28/21 02/06/23 History XL] allopurinoL [Zyloprim] 100 mg PO DAILY 11/28/21 02/06/23 History amLODIPine [Norvasc] 5 mg PO DAILY 11/28/21 02/06/23 History Cholecalciferol [Vitamin D3 (125 125 mcg PO DAILY 10/19/22 02/06/23 History Mcg = 5000 Iu)] Glimepiride [Amaryl] 2 mg PO DAILY 10/19/22 02/06/23 History Allergies Allergy/AdvReac Type Severity Reaction Status Date / Time codeine Allergy Severe Swelling, Verified 02/06/23 06:39 "face got distorted", diff breathing saccharin Allergy Unknown Nausea & Verified 02/06/23 06:39 Vomiting Iodine and Iodide Containing Allergy Rash/Hives Verified 02/06/23 06:39 Produc Penicillins Allergy Rash/Hives, Verified 02/06/23 06:39 difficulty breathing perfume Allergy Rash/Hives Verified 02/06/23 06:39 red dye Allergy Rash/Hives- Verified 02/06/23 06:39 RED DYE # 10 rubber, unspecified Allergy Rash/Hives Verified 02/06/23 06:39 shellfish derived [Shellfish] Allergy Rash/Hives Verified 02/06/23 06:39 shrimp Allergy Rash/Hives Verified 02/06/23 06:39 Oqghexo-YAU-[id number] Reductase Allergy "can not Verified 02/06/23 06:39 Inhibitor walk", "hot flash" Bandaids AdvReac Unknown Rash/Hives Uncoded 02/06/23 06:39 LEATHER AdvReac Unknown Rash/Hives Uncoded 02/06/23 06:39 artificial sugar AdvReac Nausea & Uncoded 02/06/23 06:39 Vomiting Exam Osteopathic Statement: *. No significant issues noted on an osteopathic structural exam other than those noted in the History and Physical/Consult. HEENT: within normal limits Heart: regular rate and rhythm Lungs: clear to auscultation bilaterally Abdomen: soft, non-tender Pelvic: uterus anteverted, non-tender, no adnexal masses or tenderness Extremities: neg. Megan's Assessment and Plan (1) Postmenopausal bleeding Current Visit: No Status: Acute Code(s): N95.0 - POSTMENOPAUSAL BLEEDING SNOMED Code(s): 93103751 (2) Endometrial thickening on ultrasound Current Visit: No Status: Acute Code(s): R93.89 - ABNORMAL FINDINGS ON DX IMAGING OF OTH BODY STRUCTURES SNOMED Code(s): 200932846 Plan: Proceed with dilatation and curettage with hysteroscopy. She did have medical clearance through her PCP. I have discussed the risks, benefits, and alternative therapies for the above- mentioned procedure and for both sedation/anesthesia as well as necessary blood products administration, if indicated, as they pertain to this patient. The patient has indicated her understanding and acceptance of the risks and procedures discussed.
[~2023-02-06 06:18] MED LIST changes: -LACTATED RINGERS 1,000 ML IV SCH; -LIDOCAINE 1% (10MG/ML) FOR IV START INTRADERMA PRN; +Pre Op ABX Message 1 EACH MISC MISCELLANE ONE
[2023-02-06] MEDS ORDERED: DEXAMETHASONE SOD PHOSPHATE 4 MG/ML 1 ML VIAL IV ONE (06:20)
[2023-02-06] MEDS ORDERED: LACTATED RINGERS 1,000 ML IV SCH (06:20)
[2023-02-06] MEDS ORDERED: droPERidol 5 MG/2 ML VIAL IVP ONE (06:20)
[2023-02-06] MEDS ORDERED: LIDOCAINE 1% (10MG/ML) FOR IV START INTRADERMA PRN (06:20)
[2023-02-06] MEDS ORDERED: ONDANSETRON 4 MG/2 ML VIAL IVP ONE (06:20)
[2023-02-06] MEDS ORDERED: LACTATED RINGERS 1,000 ML IV ONE (06:41)
[2023-02-06] MEDS ORDERED: HYDROmorphone 0.5 MG/0.5 ML SYRINGE IVP PRN (07:00)
[2023-02-06] MEDS ORDERED: PROPOFOL 10 MG/ML 20 ML VIAL IV ONE (07:23)
[2023-02-06] MEDS ORDERED: fentaNYL (PF) 50 MCG/ML 2 ML AMP ONE (07:23)
[2023-02-06] MEDS ORDERED: LIDOCAINE 1% INJ 10MG/ML (20 ML MDV) ONE (07:23)
--- NOTE | 2023-02-06 07:59 | P.OP ---
Date of Procedure: 02/06/23 Preoperative Diagnosis: Postmenopausal bleeding Endometrial curettings Postoperative Diagnosis: Same Procedure(s) Performed: Dilation and curettage with hysteroscopy Anesthesia: other (LMA general) Surgeon: Cuca Quinones Estimated Blood Loss (ml): 2 Pathology: other (Endometrial curettings, cervical polyp) Condition: stable Disposition: same day Indications for Procedure: This is a 82 y.o. female, 4, para 4, who presents for dilatation and curettage with hysteroscopy due to postmenopausal bleeding and endometrial thickening on ultrasound. She was originally admitted to the hospital an EGD with a bleeding polyp. She was diagnosed with atrial fibrillation during that admission and was started on Eliquis. She was diagnosed with COVID on 11/14/2022 and stopped the Eliquis that day. She started bleeding on 11/18/2022 and it lasted 10 days. Her pelvic ultrasound showed uterus measuring 7.4 x 5.5 x 6.9 cm with endometrium measuring 1.8 cm and an approximate 2 cm calcified fibroid. She was noted to have a small cervical polyp on exam in the office. This was re moved and was benign. Operative Findings: Uterus is sounded to 8 cm and anteverted. Upon hysteroscopy a large amount of polypoid type tissue was noted. There was a small endocervical polyp noted. No adnexal masses are palpated. A large amount of endometrial curettings, mostly polypoid type tissue was noted. Description of Procedure: The patient was taken to the operating room where she is placed in the dorsal lithotomy position. She is prepped and draped in the normal sterile fashion. Her bladder is drained with a catheter. Examination is performed under anesthesia. Uterus is found to be slightly anteverted with no adnexal masses palpated. Next a weighted speculum was placed in the patient's vagina and a right angle retractor was used to visualize the cervix. The anterior lip of the cervix was grasped with a single-tooth tenaculum. There was noted to be a small beefy red polyp at the internal cervical os. This was grasped with a forcep and removed. Next the uterus is sounded to 8 cm. Cervix is gently dilated with Felix dilators until a hysteroscope could be passed. Hysteroscopy is performed using normal saline. The above-noted findings were made and pictures are taken. The cervix is gently dilated further and a polyp forceps was introduced. A large amount of polypoid type tissue is obtained. Next a medium-size sharp curet was introduced and sharp curettage was performed until a gritty texture was noted. A moderate amount of tissue was obtained. Next the single-tooth tenaculum was removed. Specimens are removed from the field. No active bleeding is noted. All instrument and removed from the vagina. All sponge counts are correct. The patient is then taken to recovery room in stable condition.
[2023-02-06 08:33] VITALS: RESP 18; TEMP 97.6
[2023-02-06 08:59] VITALS: BP 122/65; PULSE 74
== END 2023-02-06 09:16 | disposition home or self-care (01) ==
LOC: OR 06:18
PROVIDERS: ATTEND Obstetrics & Gynecology
DX: N84.1 Polyp of cervix uteri (principal); N95.0 Postmenopausal bleeding; I48.91 Unspecified atrial fibrillation; I25.10 Atherosclerotic heart disease of native coronary artery without angina pectoris; I10 Essential (primary) hypertension; E78.5 Hyperlipidemia, unspecified; E11.9 Type 2 diabetes mellitus without complications; I25.2 Old myocardial infarction; Z90.89 Acquired absence of other organs; Z95.1 Presence of aortocoronary bypass graft; Z79.01 Long term (current) use of anticoagulants; Z98.890 Other specified postprocedural states; Z87.891 Personal history of nicotine dependence; Z82.49 Family history of ischemic heart disease and other diseases of the circulatory system; Z79.82 Long term (current) use of aspirin; Z79.899 Other long term (current) drug therapy; Z79.84 Long term (current) use of oral hypoglycemic drugs
CPT/HCPCS: 58558; J1100; J2405; J2001; J3010; J2704; 88305